=== PATIENT | male | born 1955 | race Caucasian/White ===

== ENCOUNTER → 2020-04-17 | Outpatient (CLI) | payer OTHER | END | disposition home or self-care (01) | LOC: OIH 13:11 | PROVIDERS: ATTEND Family Medicine | DX: Z13.6 Encounter for screening for cardiovascular disorders (principal) | CPT/HCPCS: 75571 ==

== ENCOUNTER 2022-04-22 10:54 | Observation (INO) | payer MEDICARE, OTHER ==
[~2022-04-22] VITALS: Ht 177.8 cm; Wt 112.5 kg
[2022-04-22 11:37] LABS: BASOPHILS % (AUTO) 0.5 % (0.0-5.0); EOSINOPHILS % (AUTO) 2.3 % (0.0-8.0); HEMATOCRIT 39.8 % (42-54); LYMPHOCYTES % (AUTO) 11.2 % (21.0-51.0); MEAN CORPUSCULAR HGB CONC 31.9 g/dL (32.0-36.0); MEAN CORPUSCULAR VOLUME 81.6 fL (79-99); MONOCYTES % (AUTO) 5.4 % (3.0-13.0); NEUTROPHILS % (AUTO) 80.2 % (40.0-77.0); PLATELET COUNT (AUTO) 291 K/uL (130-400); RED BLOOD CELL COUNT(AUTO) 4.88 MIL/uL (4.50-6.20); RED CELL DISTRIBUTION WIDTH 14.5 % (11.0-15.5); WHITE BLOOD COUNT (AUTO) 11.1 K/uL (4.8-10.8)
[2022-04-22 11:49] LABS: POTASSIUM 3.4 mmol/L (3.5-5.1)
[2022-04-22 12:03] LABS: THYROID STIMULATING HORMONE 1.54 uIU/mL (0.36-3.74)
[2022-04-22] MEDS ORDERED: LOSA50TA64 PO (13:38)
[2022-04-22] MEDS ORDERED: ROSU10TA28 PO (13:38)
[2022-04-22] MEDS ORDERED: LANS30CA55 PO (13:38)
[2022-04-22] MEDS ORDERED: METO-408 PO (13:38)
[2022-04-22] MEDS ORDERED: ISOS30TA92 PO (13:38)
[2022-04-22] MEDS ORDERED: APIX5TAB PO (13:38)
[2022-04-22] MEDS ORDERED: ASPI-1197 PO (13:38)
[2022-04-22] MEDS ORDERED: LORA10TA7 PO (13:38)
[2022-04-22] MEDS ORDERED: OMEP20TA20 PO (13:38)
[2022-04-22] MEDS ORDERED: FLUT1BLS3 IH (13:38)
[2022-04-22] MEDS ORDERED: ZINC220T4 PO (13:38)
[2022-04-22] MEDS ORDERED: LACT1CAP80 PO (13:38)
[2022-04-22] MEDS ORDERED: METF-444 PO (13:48)
[2022-04-22 13:52] VITALS: BP 154/61
[2022-04-22 16:02] VITALS: BP 138/72
[2022-04-22 19:00] VITALS: BP 153/78
[2022-04-22] MEDS: SOTALOL HCL 80 MG TABLET PO SCH (20:26)
[2022-04-22] MEDS: ATORVASTATIN 20 MG TABLET PO SCH (20:27)
[2022-04-22] MEDS: APIXABAN 5 MG TABLET PO SCH (20:27)
[2022-04-23] VITALS: BP_SYST 140; BP_SYST 144; BP_DIAS 82; BP_DIAS 85
[2022-04-23 04:30] VITALS: BP 168/91
[2022-04-23 07:17] LABS: HEMATOCRIT 40.8 % (42-54); MEAN CORPUSCULAR HGB CONC 30.9 g/dL (32.0-36.0); MEAN CORPUSCULAR VOLUME 84.1 fL (79-99); PLATELET COUNT (AUTO) 285 K/uL (130-400); RED BLOOD CELL COUNT(AUTO) 4.85 MIL/uL (4.50-6.20); RED CELL DISTRIBUTION WIDTH 14.6 % (11.0-15.5); WHITE BLOOD COUNT (AUTO) 10.7 K/uL (4.8-10.8)
[2022-04-23] MEDS: SOTALOL HCL 80 MG TABLET PO SCH ×2 (07:17→20:03)
[2022-04-23] MEDS: APIXABAN 5 MG TABLET PO SCH ×2 (07:19→20:03)
[2022-04-23] MEDS: ISOSORBIDE MONO 30MG SR TAB PO SCH (07:19)
[2022-04-23 07:28] LABS: CREATININE 0.8 mg/dL (0.5-1.5); POTASSIUM 3.8 mmol/L (3.5-5.1)
[2022-04-23 08:00] VITALS: BP 141/82
[2022-04-23] MEDS ORDERED: LOSARTAN 50 MG TABLET PO SCH (09:00)
[2022-04-23] MEDS: FUROSEMIDE 40MG VIAL IV SCH ×2 (10:53→16:12)
[2022-04-23] MEDS: SUCRALFATE 1 GM TABLET PO SCH ×3 (10:53→20:03)
[2022-04-23 12:00] VITALS: BP 117/73
[2022-04-23 16:00] VITALS: BP 133/69
[2022-04-23 19:29] VITALS: BP 143/72
[2022-04-23] MEDS: ATORVASTATIN 20 MG TABLET PO SCH (20:03)
[2022-04-23] MEDS ORDERED: SOTALOL HCL 80 MG TABLET PO SCH (21:00)
[2022-04-24] VITALS: BP 131/83
[2022-04-24 03:37] LABS: BASOPHILS % (AUTO) 0.8 % (0.0-5.0); EOSINOPHILS % (AUTO) 3.7 % (0.0-8.0); HEMATOCRIT 39.9 % (42-54); LYMPHOCYTES % (AUTO) 10.6 % (21.0-51.0); MEAN CORPUSCULAR HEMOGLOBIN 26.1 pg (27.0-33.0); MEAN CORPUSCULAR HGB CONC 31.1 g/dL (32.0-36.0); MEAN CORPUSCULAR VOLUME 83.8 fL (79-99); MONOCYTES % (AUTO) 7.2 % (3.0-13.0); NEUTROPHILS % (AUTO) 77.3 % (40.0-77.0); PLATELET COUNT (AUTO) 304 K/uL (130-400); RED BLOOD CELL COUNT(AUTO) 4.76 MIL/uL (4.50-6.20); RED CELL DISTRIBUTION WIDTH 14.4 % (11.0-15.5); WHITE BLOOD COUNT (AUTO) 11.4 K/uL (4.8-10.8)
[2022-04-24 03:56] LABS: ALBUMIN 3.3 g/dL (3.5-5.0); PHOSPHORUS 4.4 mg/dL (2.5-4.9); POTASSIUM 3.5 mmol/L (3.5-5.1); TOTAL PROTEIN, SERUM 7.3 g/dL (6.0-8.3)
[2022-04-24] MEDS ORDERED: MAGNESIUM 2GM PREMIX 50ML 50 ML IV PRN (04:30)
[2022-04-24] MEDS ORDERED: LIDOCAINE HCL-MPF 1% 2ML VIAL IV PRN (04:30)
[2022-04-24] MEDS ORDERED: POTASSIUM CHLORIDE 20MEQ/100ML 100 ML IV PRN (04:30)
[2022-04-24 04:42] VITALS: BP 134/71
[2022-04-24 04:56] LABS: B-TYPE NATRIURETIC PEPTIDE 160 pg/mL (0-100)
[2022-04-24] MEDS: SUCRALFATE 1 GM TABLET PO SCH ×2 (07:30→10:39)
[2022-04-24 08:00] VITALS: BP 144/84
[2022-04-24] MEDS ORDERED: ACETAZOLAMIDE SODIUM 500 MG VIAL IV SCH (08:30)
[2022-04-24] MEDS ORDERED: METOPROLOL SUCCINATE 25 MG TAB.SR.24H PO SCH (09:00)
[2022-04-24] MEDS ORDERED: **HM**TRELEGY ELLIPTA IH SCH (09:00)
[2022-04-24] MEDS: APIXABAN 5 MG TABLET PO SCH (10:38)
[2022-04-24] MEDS: ISOSORBIDE MONO 30MG SR TAB PO SCH (10:38)
[2022-04-24] MEDS: SOTALOL HCL 80 MG TABLET PO SCH (10:39)
[2022-04-24 12:00] VITALS: BP 130/71
[2022-04-24] MEDS ORDERED: SOTA80TA PO (16:08)
[2022-04-24] MEDS ORDERED: RIVA20TA PO (16:08)
[2022-04-24] MEDS ORDERED: LOSARTAN 50 MG TABLET PO SCH (21:00)
== END 2022-04-24 17:59 | disposition home or self-care (01) ==
LOC: EDH 10:54 → DIRECT 11:10 → 2DH 11:11
PROVIDERS: ADMIT Internal Medicine; ATTEND Internal Medicine
DX: I48.20 Chronic atrial fibrillation, unspecified (principal); I48.92 Unspecified atrial flutter; E11.9 Type 2 diabetes mellitus without complications; I11.0 Hypertensive heart disease with heart failure; I50.43 Acute on chronic combined systolic (congestive) and diastolic (congestive) heart failure; E78.5 Hyperlipidemia, unspecified; J96.01 Acute respiratory failure with hypoxia; I25.10 Atherosclerotic heart disease of native coronary artery without angina pectoris; J44.9 Chronic obstructive pulmonary disease, unspecified; D68.59 Other primary thrombophilia; I26.99 Other pulmonary embolism without acute cor pulmonale; Z79.01 Long term (current) use of anticoagulants; Z79.84 Long term (current) use of oral hypoglycemic drugs; Z79.899 Other long term (current) drug therapy; Z86.711 Personal history of pulmonary embolism; Z96.642 Presence of left artificial hip joint; Z86.718 Personal history of other venous thrombosis and embolism
CPT/HCPCS: 84443; 80048 ×2; 85025 ×2; 85378; 84439; 36415 ×3; 71045; 93306; 93970; 96376; 96375 ×2; 85027; 71046; 78582; 93005 ×3; 96365; 96366; 83735; 84100; 80053; 83880; 94760 ×2; G0378 ×53; G0379; J1940 ×2; A9540; A9558; J1120; J3475; J3480

== ENCOUNTER 2022-05-14 07:53 | Day surgery (SDC) | payer MEDICARE ==
[2022-05-12 14:50] LABS: HEMATOCRIT 42.4 % (42-54); LYMPHOCYTES % (AUTO) 16.3 % (21.0-51.0); MEAN CORPUSCULAR HEMOGLOBIN 25.7 pg (27.0-33.0); MEAN CORPUSCULAR HGB CONC 31.1 g/dL (32.0-36.0); MEAN CORPUSCULAR VOLUME 82.5 fL (79-99); MONOCYTES % (AUTO) 7.8 % (3.0-13.0); NEUTROPHILS % (AUTO) 70.5 % (40.0-77.0); PLATELET COUNT (AUTO) 346 K/uL (130-400); RED BLOOD CELL COUNT(AUTO) 5.14 MIL/uL (4.50-6.20); RED CELL DISTRIBUTION WIDTH 13.9 % (11.0-15.5); WHITE BLOOD COUNT (AUTO) 11.2 K/uL (4.8-10.8)
[2022-05-12 14:58] LABS: CREATININE 0.9 mg/dL (0.5-1.5); POTASSIUM 4.6 mmol/L (3.5-5.1)
[2022-05-12 15:01] LABS: INR 1.24 (0.85-1.15); PROTHROMBIN TIME 13.4 SEC (9.6-11.6)
[2022-05-12 15:02] LABS: PARTIAL THROMBOPLASTIN TIME 39.7 SEC (26.3-35.5)
[2022-05-12 15:45] LABS: APPEARANCE,URINE CLEAR (CLEAR); BILIRUBIN,URINE NEGATIVE (NEGATIVE); COLOR,URINE LIGHT-YELLOW (YELLOW); GLUCOSE, URINE (UA) NEGATIVE (NEGATIVE); KETONES,URINE NEGATIVE (NEGATIVE); LEUKOCYTE ESTERASE ,URINE NEGATIVE Leu/uL (NEGATIVE); NITRATE,URINE NEGATIVE (NEGATIVE); OCCULT BLOOD,URINE NEGATIVE (NEGATIVE); PH,URINE 5.5 (5.0-8.0); PROTEIN,URINE NEGATIVE (NEGATIVE); UROBILINOGEN,URINE 0.2 mg/dL (0.2-1.0)
[2022-05-12 15:48] LABS: MUCUS,URINE RARE LPF (None Seen); RBC,URINE 0-1 /HPF (0-1); SQUAMOUS EPITHELIAL CELL,UR RARE /HPF (0-2); WBC,URINE 0-1 /HPF (0-1)
[2022-05-13 10:56] VITALS: BP 140/73
[~2022-05-14] VITALS: Ht 177.8 cm; Wt 113.9 kg
[~2022-05-14 07:53] MED LIST: 0.9% NACL 500ML IV.SOLN 500 ML IV SCH; DiphenhydrAMINE HCL 50 MG/ML VIAL IVP SCH; FLUT1BLS3 IH; GLYCOPYRROLATE 1 MG/5 ML SYRINGE ONE; ISOS30TA92 PO; LACT1CAP80 PO; LIDOCAINE PF 100MG/5ML (2%) SYRINGE 5ML ONE; LOSA50TA64 PO; METF-444 PO; OMEP20TA20 PO; PHENYLEPHRINE HCL 10 MG/ML 1ML VIAL IV ONE; PROPOFOL 10 MG/ML 20ML VIAL IV ONE; RIVA20TA PO; ROSU10TA28 PO; SOTA120T PO; ZINC220T4 PO
[2022-05-14 08:00] VITALS: BP 150/70
[2022-05-14] MEDS ORDERED: 0.9%NACL 1000ML 1,000 ML IV ONE (08:26)
[2022-05-14] MEDS ORDERED: LIDOCAINE HCL 2% VISCOUS 15 ML UDCUP ONE (08:26)
== END 2022-05-14 10:15 | disposition home or self-care (01) ==
LOC: DAH 07:53
PROVIDERS: ATTEND Internal Medicine Interventional Cardiology
DX: I48.0 Paroxysmal atrial fibrillation (principal); I10 Essential (primary) hypertension; E11.9 Type 2 diabetes mellitus without complications; I25.10 Atherosclerotic heart disease of native coronary artery without angina pectoris; Z79.01 Long term (current) use of anticoagulants; E78.2 Mixed hyperlipidemia; Z79.84 Long term (current) use of oral hypoglycemic drugs; Z79.899 Other long term (current) drug therapy; Z86.718 Personal history of other venous thrombosis and embolism; Z82.49 Family history of ischemic heart disease and other diseases of the circulatory system; Z83.3 Family history of diabetes mellitus; Z98.890 Other specified postprocedural states; Z53.8 Procedure and treatment not carried out for other reasons
CPT/HCPCS: 80048; 85025; 85610; 85730; 81001; 36415; 93005; 87635; 82948; J7030; J2001; J2704; J2370; A4215; A4222; A4221; A4663; A4216; A4606; A4223 ×3; J3490